=== PATIENT | female | born 1985 | race Caucasian/White ===

== ENCOUNTER 2021-05-03 23:01 | Emergency (ER) | payer SELFPAY ==
[~2021-05-03] VITALS: Ht 175.3 cm; Wt 92.3 kg
[2021-05-03] MEDS ORDERED: DIPH,PERTUSS(ACELL),TET VAC/PF 0.5 ML SYRINGE. VAX IM ONE (23:28)
[2021-05-03 23:30] VITALS: BP 128/86
[2021-05-03] MEDS ORDERED: cefTRIAXone IM 1 GM VIAL IM ONE (23:30)
[2021-05-03] MEDS ORDERED: cefTRIAXone SODIUM 1 GM VIAL ONE (23:41)
--- NOTE | 2021-05-03 23:47 | PHYS DOC ---
General Adult EDM: Chief Complaint: ANIMAL BITE Problems: (1) Dog bite, hand (ELDA MELENDEZ) HPI: HPI: Patient is a 35 year old female who presents with laceration to the thenar eminence of the left hand status post dog bite. She rates her pain 4/10. Patient states she was at the home of a friend of a friend, petting the "super friendly" dog on the front porch. Patient states that she was petting their head and ears, but when she moved her hand to the dog's side, he "did not like that very much." Patient reports the dog was a pit bull or bulldog mix of some kind. Patient reports she has not usually "squeamish," but got lightheaded and had one episode of emesis upon seeing a moderate amount of blood from the wound. She cleaned the wound with some hydrogen peroxide immediately after. Per the patient, understates dog is up-to-date on vaccinations. She did not file a police report, nor does she know the dog's owners or address. Patient's tetanus was last updated in 2009. Patient denies allergies to medications. She has no other complaints at this time. (ELDA MELENDEZ) Review of Systems: Review of Systems: Constitutional: Denies fever or chills Respiratory: Denies cough or shortness of breath Cardiovascular: Denies chest pain or edema GI: Denies abdominal pain, nausea, vomiting, bloody stools or diarrhea Musculoskeletal: Denies joint pain Integument: See HPI Neurologic: Denies headache, focal weakness or sensory changes (ELDA MELENDEZ) Current Medications: Current Meds: Current Medications Medications (Trade) Dose Ordered Sig/Marva Start Time Stop Time Status Last Admin Dose Admin Ceftriaxone Sodium (Rocephin Im) 1 gm 1X ONCE 05/03/21 23:30 05/03/21 23:31 UNV Diphtheria/ Pertussis/Tetanus Vacc (ADACEL TDap SYRINGE) 0.5 ml STK-MED ONCE 05/03/21 23:28 05/03/21 23:29 DC (ELDA MELENDEZ) Physical Exam: PE: Constitutional: Well developed, well nourished, no acute distress, non-toxic appearance. Cardiovascular: Heart rate regular rhythm, no murmur Lungs & Thorax: Bilateral breath sounds clear to auscultation Skin: V-shaped 1 cm laceration to the thenar eminence of left hand. Dried blood noted on palm as well as bilateral thumbs. Skin is otherwise warm, dry, no erythema, no rash. Extremities: Tenderness to lateral aspect of left hand around laceration. No cyanosis, no clubbing, ROM intact, no edema. Neurologic: Alert and oriented X 3, normal motor function, normal sensory function, no focal deficits noted. (ELDA MELENDEZ) EKG: EKG: [] (ELDA MELENDEZ) Radiology/Procedures: Radiology/Procedures: [] (ELDA MELENDEZ) Heart Score: C/O Chest Pain: N/A (ELDA MELENDEZ) Course & Med Decision Making: Course & Med Decision Making Pertinent Labs and Imaging studies reviewed. (See chart for details) (ELDA MELENDEZ) Dragon Disclaimer: Dragon Disclaimer: This electronic medical record was generated, in whole or in part, using a voice recognition dictation system. (ELDA MELENDEZ) Departure Departure: Impression: Primary Impression: Dog bite, hand Qualified Codes: S61.452A - Open bite of left hand, initial encounter; W54.0XXA - Bitten by dog, initial encounter Disposition: 01 HOME / SELF CARE / HOMELESS Condition: STABLE Referrals: PCP,NO (PCP) Patient Instructions: Animal Bite, [id number] Additional Instructions: If possible, contact dog owners and instruct them to quarantine their pet and observe for any symptoms of rabies or prolonged aggression. Return to emergency department with any symptoms of infection (fever, purulent discharge, increased surrounding redness) or compartment syndrome (decreased blood flow as evidenced by cold extremity or lack of pulses, tingling, extreme swelling). Attending Signature Attending Signature I have participated in the care of this patient and I have reviewed and agree with all pertinent clinical information above including history, exam, and recommendations. (LIU HACKETT MD) ELDA MELENDEZ May 03, 2021 23:47 LIU HACKETT MD May 05, 2021 07:30
[2021-05-04] MEDS ORDERED: DIPH,PERTUSS(ACELL),TET VAC/PF 0.5 ML SYRINGE. VAX IM ONE
== END 2021-05-04 00:30 | disposition home or self-care (01) ==
LOC: ER 23:01
DX: S61.412A Laceration without foreign body of left hand, initial encounter (principal); R42 Dizziness and giddiness; W54.0XXA Bitten by dog, initial encounter; Y93.89 Activity, other specified; Y92.89 Other specified places as the place of occurrence of the external cause; Y99.8 Other external cause status
CPT/HCPCS: 90471; 90715; 96372; 99284; J0696

== ENCOUNTER 2021-11-02 16:53 | Emergency (ER) | payer OTHER ==
[~2021-11-02] VITALS: Ht 175.3 cm; Wt 92.6 kg
[2021-11-02] MEDS ORDERED: LIDOCAINE 1% Multi-Dose 20 ML VIAL. IJ ONE (17:15)
[2021-11-02 17:45] VITALS: BP 121/77
[2021-11-02] MEDS ORDERED: NEOMY/BACITR/POLYMYXIN OINT PACKET. TP ONE (17:45)
--- NOTE | 2021-11-02 17:48 | PHYS DOC ---
Past History Past Surgical History: Other Additional Past Surgical Histo: C-SECTIONS Alcohol Use: None General Adult EDM: Chief Complaint: LACERATION/AVULSION HPI: HPI: Patient is a 36-year-old female who presents to the emergency department today for a laceration to her forehead. Patient reports that she was at work when she opened a metal blade and leaned over to get something out of the container when the lid fell back hit her in the back of her head and her head went forward hitting the metal bars causing the laceration. Patient also has an abrasion and some ecchymosis noted to the bridge of her nose. Patient denies any loss of consciousness, nausea, vomiting, vision changes, confusion. She reports that her tetanus was last year. Review of Systems: Review of Systems: Eyes: See HPI HENT: See HPI GI: See HPI Musculoskeletal: See HPI Integument: See HPI Neurologic: HPI Current Medications: Current Meds: Current Medications Medications (Trade) Dose Ordered Sig/Marva Start Time Stop Time Status Last Admin Dose Admin Lidocaine HCl 20 ml 1X ONCE 11/02/21 17:15 11/02/21 17:16 DC Allergies: Allergies: Allergies Coded Allergies Type Severity Reaction Last Updated Verified No Known Drug Allergies 11/02/21 No Physical Exam: PE: Constitutional: Well developed, well nourished, no acute distress, non-toxic appearance. [] HENT: Normocephalic, atraumatic, bilateral external ears normal, oropharynx moist, no oral exudates, abrasion and ecchymosis noted to bridge of nose, no obvious deformity, no blood in the naris Eyes: PERRL, EOMI, 4 mm bilaterally, conjunctiva normal, no discharge. [] Neck: Normal range of motion, no bony spinal tenderness, supple, no stridor. [] Cardiovascular: Normal peripheral perfusion Lungs & Thorax: Normal work of breathing, no tachypnea Abdomen: Soft and flat Skin: Warm, dry, no erythema, no rash. [] 3 cm laceration noted to right forehead with active bleeding, no visible foreign bodies Back: Normal range of motion Extremities: No tenderness, no cyanosis, no clubbing, ROM intact, no edema. [] Neurologic: Alert and oriented X 3, normal motor function, normal sensory function, no focal deficits noted. [] Psychologic: Affect normal, judgement normal, mood normal. [] Current Patient Data: Vital Signs: Vital Signs Date Time Temp Pulse Resp B/P (MAP) Pulse Ox O2 Delivery O2 Flow Rate FiO2 11/02/21 17:15 98.7 90 20 141/85 (103) 99 Room Air EKG: EKG: [] Radiology/Procedures: Radiology/Procedures: [] Heart Score: C/O Chest Pain: N/A Risk Factors: Risk Factors: DM, Current or recent (<one month) smoker, HTN, HLP, family history of CAD, obesity. Risk Scores: Score 0 - 3: 2.5% MACE over next 6 weeks - Discharge Home Score 4 - 6: 20.3% MACE over next 6 weeks - Admit for Clinical Observation Score 7 - 10: 72.7% MACE over next 6 weeks - Early Invasive Strategies Course & Med Decision Making: Course & Med Decision Making Pertinent Labs and Imaging studies reviewed. (See chart for details) Patient presents to the emergency department for a laceration to her forehead. Patient does have an abrasion to the bridge of her nose. An x-ray was offered but she declined. Wound was cleansed in the emergency department with saline wash. There is no visible foreign bodies. Laceration was repaired with sutures. Patient tolerated procedure. Patient educated on laceration care and suture removal. I discussed with patient all findings and diagnostic testing as well as the need to follow-up with PCP for further evaluation and treatment or return to the ER if any new or worsening symptoms. Strict return precautions were also discussed at length. Patient voiced understanding and agreement with the plan. Patient is hemodynamically stable at the time of disposition. Dana Disclaimer: Dana Disclaimer: This electronic medical record was generated, in whole or in part, using a voice recognition dictation system. Laceration Repair Lac Repair Time: 1719 Confirmed: Patient, procedure, site, and site correct Consent: Patient has given verbal consent Laceration location: Right forehead Shape: Linear Depth: Superficial Details: Clean with no foreign material Neurovascular, tendon exam: Intact Anesthesia: 1% lidocaine Preparation: Sterile field established Irrigation: Wound irrigated with saline wash Skin closure: Simple interrupted sutures placed Size of suture: 6-0 Ethilon Number of sutures: 8 Complexity: Single layer Post procedure exam: Circulation, motor, sensory exam intact, bleeding cont rolled. Complications: None Patient tolerated: Well Performed by: self Total time: 20 minutes Departure Departure: Impression: Primary Impression: Laceration Disposition: HOME / SELF CARE / HOMELESS Condition: GOOD Referrals: PCP,UNKNOWN (PCP) Patient Instructions: Facial Laceration Additional Instructions: You were seen in the emergency department today for a laceration. This was repaired with sutures. Please keep your laceration site clean and dry. Please wash with mild soap and warm water. You can take Tylenol and ibuprofen for any pain. Please apply Polysporin or triple antibiotic ointment to laceration and keep a bandage in place. Sutures need to be removed in 7 to 10 days, you can go to your primary care provider return to the emergency department to have your sutures removed. Following suture removal, you can apply scar cream to the area. Please monitor for any signs of infection which include redness, warmth, swelling or drainage. Return to the emergency department if you develop any of the signs of infection, confusion, intractable nausea or vomiting, high fevers refractory to treatment, confusion, inability to walk/poor coordination. New worsening concerns. ABNER RODARTE [employer] CURATOR Nov 02, 2021 17:48
== END 2021-11-02 17:55 | disposition home or self-care (01) ==
LOC: ER 16:53
DX: S01.81XA Laceration without foreign body of other part of head, initial encounter (principal); W18.09XA Striking against other object with subsequent fall, initial encounter; Y93.89 Activity, other specified; Y92.89 Other specified places as the place of occurrence of the external cause; Y99.8 Other external cause status
CPT/HCPCS: 12013; 99282